=== PATIENT | male | born 1975 | race American Indian/Alaskan Native ===

== ENCOUNTER 2016-08-25 05:37 | Emergency (ER) | payer OTHER ==
[2016-08-25] MEDS ORDERED: TYLENOL ONE (05:46)
[2016-08-25] MEDS ORDERED: TYLENOL PO ONE (06:02)
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
[2016-08-25 09:38] VITALS: BP 137/72
== END 2016-08-25 09:39 | disposition home or self-care (01) ==
LOC: ED 05:37
DX: M54.5 Low back pain (principal); M79.1 Myalgia; V49.49XA Driver injured in collision with other motor vehicles in traffic accident, initial encounter; Y93.9 Activity, unspecified; Y92.9 Unspecified place or not applicable; Y99.9 Unspecified external cause status
CPT/HCPCS: 72131; 99284